=== PATIENT | male | born 1980 | race Caucasian/White ===

== ENCOUNTER 2018-12-23 00:58 | Outpatient (CLI) | payer MEDICAID, SELFPAY ==
[2018-12-24 14:30] LABS: PSA, Screening 0.6 ng/ml (0-2.5)
== END 2018-12-23 01:18 ==
PROVIDERS: PCP Family Medicine; Visit Provider Family Medicine
DX: N40.1 Benign prostatic hyperplasia with lower urinary tract symptoms (principal); N13.8 Other obstructive and reflux uropathy; Z12.5 Encounter for screening for malignant neoplasm of prostate
CPT/HCPCS: 36415; 84153

== ENCOUNTER 2020-01-20 09:13 | Outpatient (CLI) | payer MEDICAID, SELFPAY ==
[2020-01-21 17:36] LABS: COVID-19 RT-PCR Result NEGATIVE (Negative)
== END 2020-01-20 09:33 ==
PROVIDERS: PCP Family Medicine; Visit Provider Family Medicine
DX: R05 Cough (principal); F50.9 Eating disorder, unspecified
CPT/HCPCS: U0003

== ENCOUNTER 2021-10-22 01:38 | Outpatient (CLI) | payer MEDICAID, SELFPAY ==
[2021-10-22 12:23] LABS: Abs Immature Grans 0.01 10^3/uL (0.0-0.06); Absolute Basophil Count 0.05 10^3/uL (0.0-0.2); Absolute Eosinophil Count 0.09 10^3/uL (0.0-0.7); Absolute Lymphocyte Count 1.42 10^3/uL (1.2-3.4); Absolute Monocyte Count 0.34 10^3/uL (0.1-0.8); Absolute Neutrophil Count 3.02 10^3/uL (1.2-6.7); Eosinophils % 1.8; HCT 46.1 % (40.0-50.0); Immature Grans % 0.2; Lymphocytes % 28.8; MCH 27.7 pg (27.0-33.0); MCHC 32.5 % (32.0-36.0); MCV 85.2 fL (80-95); MPV 11.3 fL (8.0-11.0); Monocytes % 6.9; Neutrophils % 61.3; Nucleated RBC 0 %; Platelet Count 241 10^3/uL (130-400); RBC 5.41 10^6/uL (4.36-5.78); RDW 12.7 % (11.8-14.1); RDW-SD 39.2 fL; WBC 4.93 10^3/uL (4.4-10.8)
[2021-10-22 13:56] LABS: ALT 56 U/L (16-63); AST 28 U/L (15-37); Albumin 4.3 g/dL (3.4-5.0); Alkaline Phosphatase 76 U/L (46-116); Anion Gap 8.5 mmol/L (3-11); BUN 14 mg/dL (7-18); Bilirubin, Total 0.4 mg/dL (0.2-1.0); CO2 27.5 mmol/L (21.0-32.0); Calcium 9.1 mg/dL (8.5-10.1); Chloride 105 mmol/L (98-107); Glucose 96 mg/dL (74-106); Potassium 4.5 mmol/L (3.5-5.1); Sodium 141 mmol/L (136-145); TSH (W/Ref FT4) 1.07 uIU/mL (0.36-3.74); Total Protein 7.4 g/dL (6.4-8.2)
[2021-10-22 14:46] LABS: Iron 96 ug/dL (65-175)
== END 2021-10-22 01:39 | disposition home or self-care (01) ==
LOC: LBO 01:39
PROVIDERS: PCP Family Medicine; Visit Provider Family Medicine
DX: G47.69 Other sleep related movement disorders (principal); Z00.00 Encounter for general adult medical examination without abnormal findings; E03.9 Hypothyroidism, unspecified
CPT/HCPCS: 36415; 80053; 83540; 84443; 85025

== ENCOUNTER 2022-11-27 09:25 | Outpatient (CLI) | payer MEDICAID, SELFPAY ==
[2022-11-27 13:16] LABS: Calculated LDL 129 mg/dL (<100); Cholesterol 214 mg/dL (<200); HDL Cholesterol 54 mg/dL (40-60); Triglyceride 158 mg/dL (<150)
[2022-11-28 09:53] LABS: PSA, Screening 0.6 ng/mL (<=2.5)
== END 2022-11-27 09:26 | disposition home or self-care (01) ==
LOC: LOS 09:26
PROVIDERS: PCP Family Medicine; Referring Provider Family Medicine; Visit Provider Family Medicine
DX: Z13.220 Encounter for screening for lipoid disorders (principal); Z12.5 Encounter for screening for malignant neoplasm of prostate; Z00.00 Encounter for general adult medical examination without abnormal findings; Z80.42 Family history of malignant neoplasm of prostate
CPT/HCPCS: 36415; 80061; 84153

== ENCOUNTER 2024-09-14 15:59 | Outpatient (CLI) | payer MEDICAID, SELFPAY ==
--- NOTE | 2024-09-14 10:00 | DI.RAD_ITS ---
Exam(s) XR STERNUM XR CHEST 2V PA LATERAL EXAM: XR CHEST 2V PA LATERAL and XR sternum CLINICAL HISTORY: S29.9XXA Injury of Thorax, strernum pain TECHNIQUE: 2D digital imaging was performed of the sternum and chest. Four images were obtained. P A and lateral views were obtained. COMPARISON: No priors for comparison. FINDINGS: MEDIASTINUM: Normal. HEART: Normal. PULMONARY VASCULATURE: Normal. LUNGS: Clear. PLEURAL SPACE: No pleural effusion or pneumothorax. BONE:Within normal limits for the patient's age. OTHER FINDINGS:There is no evidence of a displaced sternal fracture. IMPRESSION: 1. No acute pulmonary findings. 2. No acute fractures identified. DATA REPOSITORY: RADIATION DOSE DELIVERED:
== END 2024-09-14 16:19 ==
LOC: DI 16:00
PROVIDERS: PCP Family Medicine; Visit Provider Physician Assistant
DX: S29.9XXA Unspecified injury of thorax, initial encounter (principal); X58.XXXA Exposure to other specified factors, initial encounter
CPT/HCPCS: 71046; 71120

== ENCOUNTER 2025-01-25 02:36 | Outpatient (CLI) | payer MEDICAID, SELFPAY ==
[2025-01-25 09:24] LABS: Anion Gap 6.7 mmol/L (3-11); BUN 14 mg/dL (7-18); CO2 29.3 mmol/L (21.0-32.0); CREATININE 1.1 mg/dL (0.70-1.30); Calcium 8.7 mg/dL (8.5-10.1); Chloride 105 mmol/L (98-107); Estimated GFR 83.84 (mL/min/1.73m2); Glucose 106 mg/dL (74-106); Potassium 4.7 mmol/L (3.5-5.1); Sodium 141 mmol/L (136-145); Vitamin D 25 Total 60 ng/mL (30-100)
[2025-01-25 19:19] LABS: PSA, Screening 0.6 ng/mL (<=2.5)
[2025-01-26 11:05] LABS: HIV-1/2 Ag & Ab Screen Negative (Negative)
[2025-01-26 11:17] LABS: Hepatitis C Ab w Rflx HCV PCR Negative (Negative)
[2025-01-26 11:40] LABS: HBs Antibody, Quant 19.5 mIU/mL (See Note); Hep B Surface Ab Positive (See Note); Hepatitis B Core Antibody Negative (Negative); Hepatitis B Surface Antigen Negative (Negative)
== END 2025-01-25 02:37 | disposition home or self-care (01) ==
LOC: LBO 02:37
PROVIDERS: PCP Family Medicine; Visit Provider Nurse Practitioner Family
DX: Z13.1 Encounter for screening for diabetes mellitus (principal); Z12.5 Encounter for screening for malignant neoplasm of prostate; Z11.59 Encounter for screening for other viral diseases; Z51.81 Encounter for therapeutic drug level monitoring; Z11.4 Encounter for screening for human immunodeficiency virus [HIV]
CPT/HCPCS: 36415; 80048; 82306; 84153; 86704; 86706; 86803; 87340; 87389

== ENCOUNTER → 2025-08-24 10:13 | Outpatient (CLI) | payer MEDICAID, SELFPAY ==
--- NOTE | 2025-08-24 10:15 | DI.RAD_ITS ---
Exam(s) XR RIBS RT W PA LAT CHEST CLINICAL HISTORY: Rt injury of rib, S29.9XXA. COMPARISON: No exams were available for comparison TECHNIQUE:: PA and lateral views of the chest and 3 views of the right ribs were performed. FINDINGS: LUNGS:Clear. No pleural abnormality seen. HEART: Normal size. MEDIASTINUM: Normal. BONES: A mildly displaced fracture of the lateral right 9th rib. No bony destructive lesion is seen. IMPRESSION: Ninth rib fracture. No pneumothorax.
== END ==
LOC: DI 10:15
PROVIDERS: PCP Family Medicine; Visit Provider Physician Assistant
DX: S22.31XA Fracture of one rib, right side, initial encounter for closed fracture
CPT/HCPCS: 71046; 71100